=== PATIENT | female | born 1960 | race Two or more races ===

== ENCOUNTER 2020-08-18 23:10 | Emergency (ER) | payer MEDICAID, OTHER ==
[~2020-08-18] VITALS: Ht 172.7 cm; Wt 81.6 kg
[2020-08-19 00:05] VITALS: BP 127/72
[2020-08-19 00:26] LABS: Basophils # (auto) 0.1 10 ^3/uL (0-0.2); Basophils % (auto) 0.6 % (0.0-2.0); Eosinophils # (auto) 0.1 10 ^3/uL (0-0.8); Eosinophils % (auto) 0.8 % (0.0-7.0); Hematocrit 38.5 % (36.0-46.0); Lymphocytes # (auto) 2.7 10 ^3/uL (0.4-5.4); Lymphocytes % (auto) 29.3 % (10.0-50.0); Mean Corpuscular Hgb Conc. 33.8 g/dL (32.0-36.0); Mean Corpuscular Volume 91.7 fL (80.0-100.0); Monocytes # (auto) 0.7 10 ^3/uL (0-1.3); Monocytes % (auto) 7.7 % (0.0-12.0); Neutrophils # (auto) 5.7 10 ^3/uL (1.6-8.6); Neutrophils % (auto) 61.6 % (37.0-80.0); Nucleated Red Blood Cells % 0.1 %; Platelet Count (auto) 303 10^3/uL (140-450); Red Cell Distribution Width 13.7 % (11.8-14.3); White Blood Cell 9.2 10^3/uL (4.4-10.8)
[2020-08-19 00:44] LABS: Albumin 3.9 g/dL (3.4-5.0); BUN/Creatinine Ratio 21.3; Calcium 9.2 mg/dL (8.5-10.1); Potassium 3.8 mmol/L (3.5-5.1)
[2020-08-19 00:47] LABS: Bilirubin, Total 0.3 mg/dL (0.2-1.0); Total Protein 7.4 g/dL (6.4-8.2)
== END 2020-08-19 01:57 | disposition home or self-care (01) ==
LOC: ER 23:15
DX: D25.9 Leiomyoma of uterus, unspecified (principal); N93.9 Abnormal uterine and vaginal bleeding, unspecified
CPT/HCPCS: 36415; 76830; 76856; 80053; 85025; 86850; 86900; 86901